=== PATIENT | male | born 2000 | race Caucasian/White ===

== ENCOUNTER 2019-07-17 12:01 | Emergency (ER) | payer BC, SELFPAY ==
--- NOTE | ~2019-07-17 | XR_ITS ---
EXAMINATION: XR knee LT min 4V EXAM DATE: 07/17/2019 12:52 INDICATION: Left knee injury, subsequent pain. TECHNIQUE: Left knee frontal, crosstable lateral, orthogonal oblique projections for interpretation. There is no prior study for comparison. FINDINGS: No evidence osteochondral defect or joint body in the left knee joint. No joint effusion . There are no acute fractures or dislocations identified. There is no subcutaneous gas. The soft t issue is unremarkable. There are no radiopaque foreign bodies. IMPRESSION: No acute osseous findings. Reviewed, dictated and finalized at location B. [employer] IMPRESSION: No acute osseous findings.
[2019-07-17 12:02] VITALS: BP 105/67; PULSE 93; RESP 16; TEMP 36.6; O2SAT 100
--- NOTE | 2019-07-17 12:28 | ED.LOWEXIN ---
HPI - Extremity Injury (Lower) General Chief Complaint: Extremity Injury, Lower Stated Complaint: knee injury Time Seen by Provider: 07/17/19 12:09 Source: patient Mode of arrival: wheelchair Limitations: no limitations History of Present Illness HPI Narrative: This is a 18 year old male that presents to the ER for left knee pain since an injury just prior to arrival. Reports he was playing handball and jumped up and when he landed he twisted his left knee and felt a pop. Reports since he has been unable to bear weight on the leg without pain. Denies decreased ROM or numbness. Related Data Home Medications Medication Instructions Recorded Confirmed Zyrtec 07/17/19 montelukast mg 07/17/19 Allergies Allergy/AdvReac Type Severity Reaction Status Date / Time No Known Allergies Allergy Verified 07/17/19 12:13 Review of Systems Review of Systems: Narrative: CONSTITUTIONAL: Denies fever SKIN: Denies rash MUSCULOSKELETAL: Reports joint pain, and myalgia. NEUROLOGIC: Denies numbness, or weakness. All systems reviewed & are unremarkable except as noted in HPI and below PMFSH Past Medical History Medical History (Updated 07/17/19 @ 13:31 by Radha Bhakta PA-C) History of seasonal allergies Social History Social History (Updated 07/17/19 @ 12:32 by Radha Bhakta PA-C) Smoking status: Never smoker Exam Narrative: Exam Narrative: GENERAL: Well-appearing, well-nourished, and in no acute distress. HEAD: Normocephalic, atraumatic. EYES: EOMI. EXTREMITIES: Normal range of motion. No edema, erythema or obvious deformity. Normal sensation. Normal DP pulses SKIN: Warm, dry, no rash. NEURO: No focal deficits. Alert and oriented x3. PSYCH: Normal mood and affect Course Vital Signs Vital signs: Vital Signs Temperature 97.9 F 07/17/19 12:02 Pulse Rate 93 07/17/19 12:02 Respiratory Rate 16 07/17/19 12:02 Blood Pressure 105/67 07/17/19 12:02 Pulse Oximetry 100 07/17/19 12:02 Temperature 97.9 F 07/17/19 12:02 Pulse Rate 93 07/17/19 12:02 Respiratory Rate 16 07/17/19 12:02 Blood Pressure 105/67 07/17/19 12:02 Pulse Oximetry 100 07/17/19 12:02 MDM - Extremity Injury (Lower) MDM Narrative Medical decision making narrative: Patient presents to the emergency department for left knee pain after an injury today. Reports feeling a pop and unable to bear weight on the leg. Knee x-rays without acute changes. Patient was placed in a knee immobilizer and given crutches. He was instructed to rest, ice, elevate and take [id number] pain medication as needed. Patient is from out of town and would like to follow-up with the doctor back home. Patient is stable and felt appropriate for further outpatient evaluation Imaging Data Radiologist's impression: ITS Impressions Knee X-Ray 07/17/19 12:54 IMPRESSION: No acute osseous findings. Critical Care Time Critical Care Time Critical Care Time: No Discharge Plan Discharge Clinical Impression: Acute pain of left knee Patient Disposition: Home, Self-Care Condition: Stable Instructions: Knee Sprain (ED) Additional Instructions: Return to the emergency department if you experience fever, redness and swelling of your leg, or any other symptoms that are concerning to you Wear knee immobilizer and use crutches. No weight on the affected leg. Over the counter pain medication as needed and directed. Follow up with your doctor for further care. Prescriptions: No Action montelukast 10 mg tablet RF: 0 Zyrtec RF: 0 Follow-up/Referrals: UNKNOWN,DOCTOR [Primary Care Provider] -
[2019-07-17 13:47] VITALS: BP 120/80; PULSE 80; RESP 20; TEMP 36.7; O2SAT 99
== END 2019-07-17 13:49 | disposition home or self-care (01) ==
PROVIDERS: Emergency Provider Emergency Medicine
DX: M25.562 Pain in left knee (principal)
CPT/HCPCS: 73564; 99283